=== PATIENT | female | born 1970 | race Caucasian/White ===

== ENCOUNTER 2021-03-13 13:42 | Emergency (ER) | payer OTHER ==
[2021-03-13 16:57] LABS: BASOPHIL 0.2 % (0-2); EOSINOPHIL 0.4 % (0-5); HCT 42.4 % (37.0-47.0); HGB 14.3 g/dl (12.5-16.0); LYMPHOCYTE 12.7 % (15-48); MCH 31.8 pg (25.0-31.0); MCHC 33.7 g/dL (32.0-36.0); MCV 94.2 fL (78.0-100.0); MONOCYTE 9.1 % (0-12); MPV 10.7 fL (6.0-9.5); NEUTROPHIL 77.2 % (41-80); NRBC 0; PLT 166 K/uL (150-400); RDW 12.6 % (11.5-14.0)
[2021-03-13 17:10] LABS: ALBUMIN 4.2 g/dL (3.4-5.0); BILIRUBIN - TOTAL 0.2 mg/dL (0.2-1.0); BUN/CREAT RATIO (CALC) 17.5 RATIO; CREATININE 0.8 mg/dL (0.51-0.95); GLOBULIN (CALCULATION) 3.8 g/dL; POTASSIUM 4.2 mmol/L (3.5-5.1)
[2021-03-13 21:38] LABS: BILIRUBIN NEGATIVE (NEGATIVE); BLOOD TRACE-INTACT Ery/uL (NEGATIVE); CLARITY CLEAR (CLEAR); COLOR YELLOW (YELLOW); GLUCOSE (U) NORMAL (NORMAL); LEUKOCYTES TRACE Leu/uL (NEGATIVE); NITRITE NEGATIVE (NEGATIVE); PROTEIN NEGATIVE (NEGATIVE); SPECIFIC GRAVITY >=1.030 (1.001-1.030); UROBILINOGEN 0.2 mg/dL (0.2-1.0)
[2021-03-13 21:53] LABS: BACTERIA 2+; MUCOUS MODERATE
== END 2021-03-13 21:58 | disposition home or self-care (01) ==
LOC: FER 13:42
PROVIDERS: Emergency Medicine
DX: U07.1 COVID-19 (principal); Z23 Encounter for immunization; Z88.5 Allergy status to narcotic agent
CPT/HCPCS: 36415; 80053; 81001; 85025; M0243; Q0244; U0002